=== PATIENT | female | born 1975 | race Caucasian/White ===

== ENCOUNTER 2018-08-22 06:15 | Day surgery (SDC) | payer OTHER | END 2018-08-22 13:00 | disposition home or self-care (01) | LOC: CIR.AMB 06:15 | DX: N84.0 Polyp of corpus uteri (principal) ==

== ENCOUNTER 2021-05-10 11:31 | Outpatient (CLI) | payer OTHER | END 2021-05-10 12:32 | disposition home or self-care (01) | LOC: SONOGRAMA 11:31 | PROVIDERS: ATTEND Pathology Anatomic Pathology & Clinical Pathology | DX: D34 Benign neoplasm of thyroid gland (principal); E04.8 Other specified nontoxic goiter ==

== ENCOUNTER 2021-06-19 13:44 | Emergency (ER) | payer OTHER ==
[~2021-06-19] VITALS: Ht 160 cm; Wt 59.0 kg
== END 2021-06-19 20:02 | disposition home or self-care (01) ==
LOC: ER 13:44
DX: U07.1 COVID-19 (principal); R06.02 Shortness of breath; R07.89 Other chest pain